=== PATIENT | female | born 1955 | race Caucasian/White ===

== ENCOUNTER → 2016-08-16 | Day surgery (SDC) | payer OTHER ==
[~2016-08-16] MED LIST: BUPIVACAINE HCL 0.5 % INJ/PF 30 ML SDV ONE; METHYLPREDNISOLONE ACETATE INJ 40 MG/1 ML ML ONE
== END ==
LOC: RAD 14:30
PROVIDERS: ATTEND Orthopaedic Surgery
PROC: 3E0U33Z Introduction of Anti-inflammatory into Joints, Percutaneous Approach (ICD-10-PCS; principal; 2016-08-16)
DX: M25.551 Pain in right hip (principal)
CPT/HCPCS: 73501; 20610; 77002; J1020